=== PATIENT | female | born 1995 | race Asian ===

== ENCOUNTER 2019-08-17 18:32 | Emergency (ER) | payer OTHER ==
[~2019-08-17] VITALS: Ht 157.5 cm; Wt 70.3 kg
[~2019-08-17 18:32] MED LIST: PREN-385 PO
[2019-08-17 18:43] VITALS: BP 149/77
[2019-08-17] MEDS: ALBUTEROL 0.083% 2.5 MG/3 ML NEBU INH ONE (19:24)
[2019-08-17] MEDS: ALBUTEROL SULFATE/IPRATROPIU 3 ML SOL IH ONE (19:25)
[2019-08-17] MEDS: predniSONE 20 MG TAB PO ONE (19:28)
[2019-08-17 19:59] VITALS: BP 149/77
== END 2019-08-17 19:59 | disposition home or self-care (01) ==
LOC: MED 18:32
DX: J45.901 Unspecified asthma with (acute) exacerbation (principal); Z79.899 Other long term (current) drug therapy
CPT/HCPCS: 94640; 99283; J7512; J7613

== ENCOUNTER 2021-12-18 07:42 | Emergency (ER) | payer OTHER ==
[~2021-12-18] VITALS: Ht 157.5 cm; Wt 85.4 kg
--- NOTE | 2021-12-18 07:55 | NUR ---
PATIENT AMBULATED TO BED 7.
--- NOTE | 2021-12-18 08:22 | NUR ---
PT IN A GOWN
--- NOTE | 2021-12-18 08:31 | NUR ---
26YR OLD FEMALE BIB SELF C/O RASH/HIVES TO BODY X1DAY. PT HAS A ALLERGY TO SEAFOOD, DENIES CONSUMPTION OF SEAFOOD. DENIES SOB OR CP. NO DISTRESS NOTED. DENIES ANY NEW LAUNDRY SOAP , NEW CLOTHES OR NEW BODY WASH. PT IS A&OX4 SPEAKING FULL SENTENCES. SPO2 100% RA . HOB ELEVATED. SIDE RAILS UP X1. BED AT LOWEST POSITION. SEAFOOD ASTHMA
--- NOTE | 2021-12-18 09:21 | NUR ---
PT MOVED TO ER BED 10
[2021-12-18] MEDS ORDERED: methylPREDNISolone SS 125 MG in WATER STERILE 2 ML IM ONE (09:45)
[2021-12-18] MEDS ORDERED: PRED20TA5 PO (09:46)
[2021-12-18] MEDS ORDERED: DIPH25TA53 PO (09:46)
[2021-12-18] MEDS ORDERED: methylPREDNISolone SS 125 MG/2 ML VIAL ONE (09:50)
[2021-12-18 10:04] VITALS: BP 131/73
--- NOTE | 2021-12-18 10:04 | NUR ---
Patient discharged with v/s stable. Written and verbal after care instructions given and explained. Patient alert, oriented and verbalized understanding of instructions. Ambulatory with steady gait. All questions addressed prior to discharge. ID band removed. Patient advised to follow up with PMD. Rx of prednisone and benadryl given. Patient educated on indication of medication including possible reaction and side effects. Opportunity to ask questions provided and answered.
== END 2021-12-18 10:04 | disposition home or self-care (01) ==
LOC: MED 07:42
DX: L50.0 Allergic urticaria (principal); R51.9 Headache, unspecified; J45.909 Unspecified asthma, uncomplicated; Z79.899 Other long term (current) drug therapy
CPT/HCPCS: 81002; 96372; 99283; J2930; Q0163